=== PATIENT | male | born 1955 | race Caucasian/White ===

== ENCOUNTER 2018-12-26 01:29 | Inpatient (IN) | payer OTHER ==
[2018-12-26] MEDS ORDERED: NITROGLYCERIN (SL) 0.4 MG TAB SL (02:30)
[2018-12-26] MEDS ORDERED: ONDANSETRON 4 MG INJ IV (02:30)
[2018-12-26] MEDS ORDERED: ACETAMINOPHEN 325 MG TAB PO (02:30)
[2018-12-26] MEDS: SOD CHLORIDE 0.9% 1,000 ML IV (03:27)
[2018-12-26] MEDS: PANTOPRAZOLE (EC) 40 MG TAB PO (06:16)
[2018-12-26 06:47] LABS: ADD MAN DIFF? NO
[2018-12-26 06:53] LABS: WHITE BLOOD COUNT 6.5 10^3/ul (4.8-10.8)
[2018-12-26 06:53] LABS: BASOPHILS % 0.6 % (0.0-2.0); EOSINOPHILS # 0.2 10^3/ul (0.0-0.5); EOSINOPHILS % 3.2 % (0.0-7.0); HEMATOCRIT 41.1 % (42.0-52.0); HEMOGLOBIN 13.9 g/dl (14.0-18.0); LYMPHOCYTES # 1.2 10^3/ul (0.8-2.9); LYMPHOCYTES % 18.5 % (15.0-51.0); MEAN CORPUSCULAR HEMOGLOBIN 30.8 pg (29.0-33.0); MEAN CORPUSCULAR HGB CONC 33.8 g/dl (32.0-37.0); MEAN CORPUSCULAR VOLUME 91.1 fl (82.0-101.0); MEAN PLATELET VOLUME 10.6 fl (7.4-10.4); MONOCYTE # 0.6 10^3/ul (0.3-0.9); MONOCYTES % 9.4 % (0.0-11.0); NEUTROPHIL # 4.4 10^3/ul (1.6-7.5); NEUTROPHILS % 67.8 % (39.0-77.0); PLATELET COUNT 227 10^3/UL (140-415); RED BLOOD COUNT 4.51 10^6/ul (4.70-6.10); RED CELL DISTRIBUTION WIDTH 13.7 % (11.5-14.5)
[2018-12-26 07:19] LABS: ANION GAP 8 (5-13); BLOOD UREA NITROGEN 16 mg/dl (7-20); CARBON DIOXIDE 24 mmol/L (21-31); CHLORIDE 110 mmol/L (97-110); CREATININE 0.93 mg/dl (0.61-1.24); Estimated GFR > 60 mL/min (>60); GLUCOSE 106 mg/dl (70-220); SODIUM 142 mmol/L (135-144)
[2018-12-26] MEDS: ASPIRIN (EC) 81 MG TAB PO (08:04)
[2018-12-26 13:07] LABS: TROPONIN-I < 0.012 ng/ml (0.000-0.120)
[2018-12-26 14:52] LABS: CREATINE KINASE 142 IU/L (23-200)
[2018-12-27 04:06] LABS: AMPHETAMINE/METHAMPHETAMINE Negative (NEGATIVE); BARBITURATES Negative (NEGATIVE); BENZODIAZEPINES Negative (NEGATIVE); CANNABINOIDS Positive (NEGATIVE); COCAINE Negative (NEGATIVE); OPIATES Negative (NEGATIVE)
[2018-12-27] MEDS: SOD CHLORIDE 0.9% 1,000 ML IV (04:26)
[2018-12-27] MEDS: PANTOPRAZOLE (EC) 40 MG TAB PO (06:11)
[2018-12-27] MEDS: ASPIRIN (EC) 81 MG TAB PO (08:18)
[2018-12-27 15:04] LABS: HDL CHOLESTEROL 57 mg/dl (30-78); LDL CHOLESTEROL,CALCULATED 91 mg/dl; TRIGLYCERIDES 129 mg/dl (0-149)
[2018-12-27 15:04] LABS: CHOLESTEROL 174 mg/dl (100-200)
== END 2018-12-27 17:09 | disposition home or self-care (01) | DRG 884 ==
LOC: TEL 01:29
DX: R40.4 Transient alteration of awareness (principal); R47.81 Slurred speech; R53.1 Weakness; R23.1 Pallor; R55 Syncope and collapse; M54.2 Cervicalgia
CPT/HCPCS: 70551; 71045; 72141; 80048; 80061; 80307; 82550; 84484; 85025; 93005; 93306; 93880; 95819

== ENCOUNTER 2019-01-11 06:57 | Day surgery (SDC) | payer OTHER ==
[2019-01-11] MEDS ORDERED: FENTAnyl 50 MCG/ML VIAL (09:06)
[2019-01-11] MEDS ORDERED: MIDAZOLAM 1 MG/ML 2 ML INJ ×3 (09:06)
== END 2019-01-11 10:57 | disposition home or self-care (01) ==
LOC: GIL 06:57
DX: Z12.11 Encounter for screening for malignant neoplasm of colon (principal); D12.2 Benign neoplasm of ascending colon; D12.4 Benign neoplasm of descending colon; D12.5 Benign neoplasm of sigmoid colon
CPT/HCPCS: 45385; 88305